=== PATIENT | male | born 1950 | race Caucasian/White ===

== ENCOUNTER 2018-11-05 11:47 | Emergency (ER) | payer SELFPAY | END 2018-11-05 13:23 | disposition left against medical advice (07) | LOC: EMS 11:51 | DX: R11.2 Nausea with vomiting, unspecified (principal); Z53.21 Procedure and treatment not carried out due to patient leaving prior to being seen by health care provider ==

== ENCOUNTER 2022-02-22 05:48 | Day surgery (SDC) | payer OTHER, MEDICAID ==
[2022-02-20 12:39] LABS: COVID AG,FIA SOURCE NASAL SWAB
[~2022-02-22] VITALS: Ht 162.6 cm; Wt 53.6 kg
[~2022-02-22 05:48] MED LIST: KETOROLAC TROMETHAMINE 0.5% 5 ML OPHTHALMIC SOLUTION ONE; MOXIFLOXACIN HCL 0.5% 3 ML OPHTHALMIC SOLUTION ONE; PHENYLEPHRINE HCL 2.5% 2 ML OPHTHALMIC SOLUTION ONE; RINGERS SOLUTION,LACTATED 500 ML IV ONE; TROPICAMIDE 1% 2 ML OPHTHALMIC SOLUTION ONE
[2022-02-22] MEDS ORDERED: POVIDONE-IODINE 10% 15 ML SOLUTION UD TP ONE (05:49)
[2022-02-22] MEDS ORDERED: HYALURONATE SOD/CHONDROITIN SOD 0.5 ML VIAL IO ONE (05:49)
[2022-02-22] MEDS ORDERED: BALANCED SALT 15 ML OPHTHALMIC IRRIG.SOLN OD ONE (05:49)
[2022-02-22] MEDS ORDERED: TETRACAINE HCL/PF 0.5% 4 ML OPHTHALMIC SOLUTION OD ONE (05:49)
[2022-02-22] MEDS ORDERED: FentaNYL CITRATE PF 100 MCG/2 ML VIAL IVP ONE (05:49)
[2022-02-22] MEDS ORDERED: LIDOCAINE/PF 1% 2 ML VIAL IM ONE (05:49)
[2022-02-22] MEDS ORDERED: MIDAZOLAM HCL 2 MG/2 ML VIAL IVP ONE (05:49)
[2022-02-22] MEDS ORDERED: CHONDR SULF A SOD/HYALURONATE 1.05 ML KIT IO ONE (05:49)
[2022-02-22] MEDS ORDERED: EPINEPHrine 1:1,000 [1 MG/ML] VIAL IM ONE (05:49)
[2022-02-22] MEDS: PHENYLEPHRINE HCL 2.5% 2 ML OPHTHALMIC SOLUTION OD SCH ×3 (06:13→06:24)
[2022-02-22] MEDS: KETOROLAC TROMETHAMINE 0.5% 5 ML OPHTHALMIC SOLUTION OD SCH ×3 (06:13→06:24)
[2022-02-22] MEDS: MOXIFLOXACIN HCL 0.5% 3 ML OPHTHALMIC SOLUTION OD SCH ×3 (06:13→06:24)
[2022-02-22] MEDS: TROPICAMIDE 1% 2 ML OPHTHALMIC SOLUTION OD SCH ×3 (06:13→06:24)
[2022-02-22] MEDS ORDERED: INSU100V SQ ×2 (06:41)
[2022-02-22] MEDS ORDERED: CHOL25TA4 PO (06:41)
[2022-02-22] MEDS ORDERED: INSU100V52 SQ (06:41)
[2022-02-22] MEDS ORDERED: PANT-31 PO (06:41)
[2022-02-22 06:46] LABS: GLUCOMETER DEV NAME(LOC) SDS.; GLUCOSE,POINT OF CARE 199 MG/DL (70-110)
[2022-02-22] MEDS ORDERED: ONDANSETRON HCL 4 MG/2 ML VIAL ONE (07:49)
== END 2022-02-22 09:15 | disposition home or self-care (01) ==
LOC: SURGERY 05:48
PROVIDERS: ATTEND Ophthalmology
DX: E11.36 Type 2 diabetes mellitus with diabetic cataract (principal); H25.11 Age-related nuclear cataract, right eye; Z98.890 Other specified postprocedural states; G20 Parkinson's disease; Z88.0 Allergy status to penicillin; I10 Essential (primary) hypertension; Z79.899 Other long term (current) drug therapy
CPT/HCPCS: 87426; 66984; 82962; C9803; J0171; J3010; J3490; J2250; J2405; Q9967; J7120; V2632